=== PATIENT | female | born 1990 | race Caucasian/White ===

== ENCOUNTER 2025-03-06 11:29 | Emergency (ER) | payer MEDICAID ==
[~2025-03-06] VITALS: Ht 167.6 cm; Wt 70.0 kg
[2025-03-06 11:31] VITALS: O2SAT 100
[2025-03-06 11:49] VITALS: BP 104/55; PULSE 50; RESP 18; TEMP 37.1; O2SAT 100
[2025-03-06 12:48] LABS: BASOPHILS % 0.2 % (0.0-2.0); EOSINOPHILS % 2.6 % (0.0-5.0); HEMATOCRIT. 30.6 % (36.0-48.0); HEMOGLOBIN. 9.6 g/dL (12.0-16.0); LYMPHOCYTES % 31.6 % (20.0-50.0); MEAN PLATELET VOLUME 9.2 fl (7.4-10.4); MONOCYTES % 6.2 % (2.0-8.0); NEUTROPHILS % 59.4 % (40.0-76.0); PLATELET 167 x1000/uL (130-400); RED BLOOD CELL COUNT 4.45 mill/uL (4.2-5.4); RED CELL DISTRIBUTION WIDTH 17.1 % (11.6-14.6)
[2025-03-06 12:49] LABS: ADD RBC MORPHOLOGY YES
[2025-03-06 13:00] LABS: HCG SCREEN NEGATIVE
[2025-03-06 13:04] LABS: CREATININE 0.8 mg/dL (0.6-1.0); UREA NITROGEN BLOOD 17 mg/dL (9-23)
[2025-03-06 13:06] LABS: ASPARTATE AMINOTRANSFERASE 33 IU/L (<34); BILIRUBIN DIRECT 0.2 mg/dL (<=3.0); BILIRUBIN TOTAL 0.5 mg/dL (0.1-1.0); PROTEIN TOTAL 6.7 g/dL (6.0-8.3)
[2025-03-06 13:11] LABS: CLARITY URINE CLEAR (CLEAR); COLOR URINE YELLOW (YELLOW); GLUCOSE URINE NEGATIVE (NEGATIVE); KETONES URINE 3+ (NEGATIVE); LEUKOCYTE ESTERASE URINE NEGATIVE (NEGATIVE); NITRITE URINE NEGATIVE (NEGATIVE); OCCULT BLOOD URINE NEGATIVE (NEGATIVE); PH URINE 6.0 (4.5-8.0); PROTEIN URINE TRACE (NEGATIVE); SPECIFIC GRAVITY URINE 1.036 (1.005-1.030); UROBILINOGEN URINE 1.0 E.U./dL (0.2-1.0)
[2025-03-06] MEDS: ONDANSETRON 4MG ODT PO ONE (13:40)
[2025-03-06 13:58] LABS: SQUAMOUS EPITHELIAL CELL URINE 3+ /lpf (RARE/1+)
[2025-03-06 13:59] LABS: HYALINE CASTS URINE 0-5 /lpf; MUCUS URINE 3+ /lpf (< = 2+)
[2025-03-06 14:00] LABS: CALCIUM OXALATE CRYSTALS URINE 2+ /lpf; RBC URINE NONE SEEN /hpf (0-2)
[2025-03-06 14:01] LABS: BACTERIA URINE 2+
[2025-03-06 15:22] LABS: PLATELET ESTIMATE NORMAL
== END 2025-03-06 15:46 | disposition left against medical advice (07) ==
LOC: ER 11:29 → CMPBEDREQ 03-08 07:22
DX: R10.9 Unspecified abdominal pain (principal); Z98.890 Other specified postprocedural states; Z90.49 Acquired absence of other specified parts of digestive tract
CPT/HCPCS: 36415; 80048; 80076; 81003; 81025; 84703; 85025; 93005; 99284